=== PATIENT | female | born 1980 | race Caucasian/White ===

== ENCOUNTER 2018-01-18 10:36 | Day surgery (SDC) | payer OTHER ==
[2018-01-18] MEDS ORDERED: IOHEXOL 300MG/ML 30 ML BTL (12:37)
[2018-01-18] MEDS ORDERED: PROPOFOL 100 ML (13:27)
[2018-01-18] MEDS ORDERED: FENTAnyl 50 MCG/ML VIAL IV ×2 (14:00)
[2018-01-18] MEDS ORDERED: OXYCODONE/ACETAMINOPHEN (5/325) TAB PO ×2 (14:00)
[2018-01-18] MEDS ORDERED: DIPHENHYDRAMINE 50 MG INJ IV (14:00)
[2018-01-18] MEDS ORDERED: HYDROmorphONE (0.2 MG/ML) 10ML SYG IV ×3 (14:00)
[2018-01-18] MEDS ORDERED: ALBUTEROL 0.083% (NEB) 2.5 MG/3 ML AMP HHN (14:00)
[2018-01-18] MEDS ORDERED: MEPERIDINE 25 MG INJ IV (14:00)
[2018-01-18] MEDS ORDERED: hydrALAzine 20 MG INJ IV (14:00)
[2018-01-18] MEDS ORDERED: ONDANSETRON 4 MG INJ IV (14:00)
[2018-01-18] MEDS ORDERED: METOCLOPRAMIDE 10 MG INJ IV (14:00)
[2018-01-18] MEDS ORDERED: EPHEDrine SULFATE 50 MG/5 ML SYG IV (14:00)
[2018-01-18] MEDS ORDERED: MIDAZOLAM 1 MG/ML 2 ML INJ IV (14:00)
[2018-01-18] MEDS ORDERED: KETOROLAC 30 MG INJ IV (14:00)
[2018-01-18] MEDS ORDERED: LABETALOL HCL 20MG INJ IV (14:00)
[2018-01-18] MEDS ORDERED: LIDOCAINE 100 MG SYRINGE (14:14)
[2018-01-18] MEDS: FENTAnyl 50 MCG/ML VIAL IV (15:01)
== END 2018-01-18 15:49 | disposition home or self-care (01) ==
LOC: GIL 10:36 → SDS 10:36 → GIL 15:49
DX: K80.50 Calculus of bile duct without cholangitis or cholecystitis without obstruction (principal); E66.9 Obesity, unspecified; Z68.33 Body mass index [BMI] 33.0-33.9, adult
CPT/HCPCS: 43264; 74330